=== PATIENT | male | born 1950 | race African-American/Black ===

== ENCOUNTER 2016-12-07 16:59 | Emergency (ER) | payer OTHER ==
[~2016-12-07] VITALS: Ht 185.4 cm; Wt 118.9 kg
[2016-12-07 19:03] LABS: HEMATOCRIT 37.9 % (38.0-50.0); MCH 30.6 PG (29.0-34.0); MCHC 33.2 G/DL (30.0-36.0); MEAN PLAT.VOLUME 10.4 uM^3 (9.0-12.4); PLATELET COUNT 191 K/uL (156-360); RBC DIS.WIDTH-CV 13.1 % (11.8-14.6); RBC DIS.WIDTH-SD 43.3 % (39-53); RED BLOOD COUNT 4.12 M/uL (4.00-5.50); WHITE BLOOD COUNT 6.1 K/uL (4.1-10.2)
[2016-12-07 19:26] LABS: TROP-I INTERPRETATION NEGATIVE; TROPONIN-I 0.02 ng/mL (0.0-0.30)
[2016-12-07 19:37] LABS: CHLORIDE 109 mEq/L (99-109); POTASSIUM 4.5 mEq/L (3.7-5.4); SODIUM 136 mEq/L (136-147)
[2016-12-07 19:38] LABS: GLUCOSE 110 mg/dL (70-99)
[2016-12-07 19:40] LABS: ANION GAP 9 MEQ/L (2-14)
[2016-12-07 19:42] LABS: GFR ESTIMATE (CALCULATED) > 59 mL/min/
[2016-12-07 19:43] LABS: UREA NITROGEN (BUN) 22 mg/dL (9-23)
[2016-12-07 21:00] VITALS: BP 123/83
== END 2016-12-07 22:16 | disposition short-term general hospital (02) ==
LOC: EME 16:59 → EDBD 16:59 → EME 22:16
PROVIDERS: Emergency Medicine
DX: J81.1 Chronic pulmonary edema (principal); I50.9 Heart failure, unspecified; I48.91 Unspecified atrial fibrillation
CPT/HCPCS: 71020; 80048; 83880; 84484; 85027; 93005; 99281; 99285; J1940